=== PATIENT | male | born 1950 | race Caucasian/White ===

== ENCOUNTER → 2018-05-23 | Outpatient (CLI) | payer OTHER | LOC: FIMAGING 09:13 | PROVIDERS: ATTEND Psychiatry & Neurology Neurology | DX: F07.89 Other personality and behavioral disorders due to known physiological condition (principal); G35 Multiple sclerosis ==

== ENCOUNTER 2018-06-25 07:49 | Emergency (ER) | payer OTHER ==
[2018-06-25] MEDS ORDERED: NS 1,000 ML IV ONE (08:12)
[2018-06-25] MEDS ORDERED: ONDANSETRON 4 MG/2 ML VIAL IVP ONE (08:13)
--- NOTE | 2018-06-25 08:19 | EDPHY ---
H & P Stated Complaint: shakey, dizzy, decreased appetite, not sleeping, "blacked out " on Friday Time Seen by Provider: 06/25/18 08:07 HPI/ROS: CHIEF COMPLAINT: Weakness, paresthesias, lightheaded HISTORY OF PRESENT ILLNESS: The patient is a 68-year-old man whose is here today to get a colonoscopy so he decided to check into the ER. He states that he has had flu-like symptoms for about the last week including a cough productive of yellow sputum, body aches, but no sore throat or runny nose. He felt a little lightheaded this morning. No shortness of breath or chest pain. He did get a flu shot this year. He states that on Friday he was dehydrated and blacked out at the grocery store. Paramedics told me was dehydrated and he declined transport. He does have a history of MS but has not had symptoms for several years and had a negative MRI 3 weeks ago. Also history of hypothyroidism on stable doses of Synthroid. He states that he feels nauseous but has not vomited. He tells me that it feels like he has a rat in his stomach. He is requesting hydration. He also complains that last night he felt like his legs were tingling. He denies weakness. He is ambulating without difficulty. No back pain. No bowel or bladder abnormalities. he states that he has not been eating or drinking well because he has been feeling sick. Severity: Moderate Modifying factors: None REVIEW OF SYSTEMS: Constitutional: See HPI EENTM: denies: blurred vision, double vision, nose congestion Respiratory: See HPI Cardiac: denies: chest pain, irregular heart rate, lightheadedness, palpitations Gastrointestinal/Abdominal: See HPI denies: abdominal pain, diarrhea, vomiting , blood streaked stools Genitourinary: denies: dysuria, frequency, hematuria, pain Musculoskeletal: denies: joint pain, muscle pain Skin: denies: lesions, rash, jaundice, bruising Neurological: See HPI denies: headache, Hematologic/Lymphatic: denies: blood clots, easy bleeding, easy bruising Immunologic/allergic: denies: HIV/AIDS, transplant 10 systems reviewed and negative except as noted EXAM: GENERAL: Well-appearing, well-nourished and in no acute distress. HEAD: Atraumatic, normocephalic. EYES: Pupils equal round and reactive to light, extraocular movements intact, sclera anicteric, conjunctiva are normal. No nystagmus ENT: TMs normal, nares patent, oropharynx clear without exudates. Dry mucous membranes. NECK: Normal range of motion, supple without lymphadenopathy or JVD. LUNGS: Breath sounds clear to auscultation bilaterally and equal. No wheezes rales or rhonchi. HEART: Regular rate and rhythm without murmurs, rubs or gallops. ABDOMEN: Soft, nontender, normoactive bowel sounds. No guarding, no rebound. No masses appreciated. BACK: No CVA tenderness, no spinal tenderness, step-offs or deformities EXTREMITIES: Normal range of motion, no pitting or edema. No clubbing or cyanosis. NEUROLOGICAL: Cranial nerves II through XII grossly intact. Normal speech, normal gait. 5/5 strength, normal movement in all extremities, normal sensation , normal reflexes, normal [id number] and [id number]. PSYCH: Normal mood, normal affect. SKIN: Warm, dry, normal turgor, no visible rashes or lesions. Slightly dry Source: Patient Exam Limitations: No limitations - Personal History Current Tetanus/Diphtheria Vaccine: Unsure Current Tetanus Diphtheria and Acellular Pertussis (TDAP): Unsure - Medical/Surgical History Hx Asthma: Yes Hx Chronic Respiratory Disease: No Hx Diabetes: No Hx Cardiac Disease: No Hx Renal Disease: No Hx Cirrhosis: No Hx Alcoholism: No Hx HIV/AIDS: No Hx Splenectomy or Spleen Trauma: No Other PMH: ms, hypothyroid - Family History Significant Family History: No pertinent family hx - Social History Smoking Status: Former smoker Alcohol Use: None Constitutional: Initial Vital Signs Temperature (C) 36.5 C 06/25/18 07:52 Heart Rate 80 06/25/18 07:52 Respiratory Rate 18 06/25/18 07:52 Blood Pressure 164/92 H 06/25/18 07:52 O2 Sat (%) 94 06/25/18 07:52 O2 Delivery Mode Room Air Allergies/Adverse Reactions: No Known Allergies Allergy (Unverified 01/18/15 17:19) Home Medications: Medication Instructions Recorded Cobroxin 01/18/15 Levothyroxine [Synthroid 25 mcg 25 mcg PO DAILY06 06/25/18 (*)] Medical Decision Making - Diagnostics Imaging: Discussed imaging studies w/ rn call center Radiologist ED Course/Re-evaluation: 9:30 a.m. Patient is feeling much better. He is awaiting the rest of his IV fluids. He is grateful 10:00 a.m. the patient's lab work is all reassuring. He continues to feel well and is eager to go. His is getting a colonoscopy. He declines further workup or testing at this time. Differential Diagnosis: Partial list of the Differential diagnosis considered include but were not limited to; viral syndrome, influenza, dehydration and although unlikely based on the history and physical exam, I also considered acute coronary disease, pneumonia, sepsis, meningitis, PE. I discussed these differential diagnoses and the plan with the patient as well as the usual and expected course. The patient understands that the diagnosis is provisional and that in medicine we are not always correct and that further workup is often warranted. Usual and customary warnings were given. All of the patient's questions were answered. The patient was instructed to return to the emergency department should the symptoms at all worsen or return, otherwise to followup with the physician as we discussed. - Data Points Laboratory Results: Laboratory Results 06/25/18 08:20 06/25/18 08:20 Medications Given: Discontinued Medications Sodium Chloride (Ns) 1,000 mls @ 0 mls/hr IV EDNOW ONE; Wide Open PRN Reason: Protocol Stop: 06/25/18 08:13 Last Admin: 06/25/18 08:26 Dose: 1,000 mls Ondansetron HCl (Zofran) 4 mg IVP EDNOW ONE Stop: 06/25/18 08:14 Last Admin: 06/25/18 08:26 Dose: 4 mg Departure - Departure Disposition: Home, Routine, Self-Care Clinical Impression: Viral syndrome, Dehydration Condition: Fair Instructions: Dehydration (ED), Viral Syndrome (ED) Referrals: Nilay Hirsch, [Primary Care Provider] - 2-3 days, call for appt.
[2018-06-25 08:43] LABS: PLATELET COUNT 317 10^3/uL (150-400)
[2018-06-25 10:30] VITALS: BP 159/85
== END 2018-06-25 10:46 | disposition home or self-care (01) ==
DX: B34.9 Viral infection, unspecified (principal); E86.0 Dehydration; E03.9 Hypothyroidism, unspecified; G35 Multiple sclerosis; Z79.890 Hormone replacement therapy
CPT/HCPCS: 71046; 96361; 96374; 99284; J2405